=== PATIENT | male | born 1955 | race Two or more races ===

== ENCOUNTER 2017-03-17 15:23 | Emergency (ER) | payer BC ==
[~2017-03-17] VITALS: Ht 180.3 cm; Wt 90.7 kg
[2017-03-17 15:25] VITALS: BP 122/81
[2017-03-17] MEDS: HYDROmorphone 1mg/ml Carpuject IVP PRN ×2 (16:13→17:49)
--- NOTE | 2017-03-17 16:18 | Emergency Room Report ---
History of Present Illness General Chief Complaint: Upper Extremity Injury Source: Patient, EMS Present Illness HPI 61YOM BIBEMS with likely clavicle fx Patient fell "straight" down 6 steps, impacted upper right shoulder/chest area - did NOT tumble/roll No LOC, no neck pain [place] "pop" in clavicle area No previous injury No pain to upper arm, elbow, forearm, hand/wrist Was given morphine/zofran by EMS Allergies: Coded Allergies: No Known Allergies (Unverified , 03/17/17) Patient History Past Medical History: none Past Surgical History: none Pertinent Family History: none Social History: Denies: smoking, alcohol use, drug use Immunizations: UTD Reviewed Nursing Documentation: PMH: Agreed, PSxH: Agreed Nursing Documentation-PMH Past Medical History: No Stated History Review of Systems All Other Systems: negative except mentioned in HPI Physical Exam Vital Signs Date Time Temp Pulse Resp B/P (MAP) Pulse Ox O2 Delivery O2 Flow Rate FiO2 03/17/17 15:19 98.6 72 20 116/75 96 Room Air Sp02 EP Interpretation: reviewed, normal General Appearance: normal inspection, well appearing, no apparent distress, alert Head: atraumatic ENT: normal ENT inspection, hearing grossly normal, normal voice Neck: normal inspection, full range of motion, supple, no bony tend Respiratory: normal inspection, lungs clear, normal breath sounds, no respiratory distress, no retraction, no wheezing Cardiovascular #1: regular rate, rhythm, no edema Gastrointestinal: normal inspection, normal bowel sounds, non tender, soft, no guarding, no hernia Genitourinary: no CVA tenderness Musculoskeletal: normal inspection, back normal, normal range of motion, Gavi' s Sign negative, other - upper right chest: palpable deformity crackling of mid- shaft of clavicle. No ttp to right shoulder, upper arm, chest Neurologic: normal inspection, alert, responsive, speech normal Psychiatric: normal inspection, judgement/insight normal, mood/affect normal Skin: normal inspection, normal color, no rash Medical Decision Making Diagnostic Impression: Primary Impression: Closed right clavicular fracture Qualified Codes: S42.024A - Nondisplaced fracture of shaft of right clavicle, initial encounter for closed fracture Additional Impression: Fall (on) (from) other stairs and steps, initial encounter ER Course Comminuted fx of midshaft right clavicle, displaced by 2 bone widths Analgesia PO and IV provided Had phone conversation and Ortho Cx with Dr Renee - recommended sling and outpatient followup for repeat xray in 1 week. No acute surgical intervention recommended now. There is no open fx, there is no tenting of the skin Shoulder joint alignment otherwise intact Rx percocet Patient already made f/up appt for Ortho tomrorow DC home Chest X-Ray Diagnostic Results Chest X-Ray Diagnostic Results : Chest X-Ray Ordered: Yes # of Views/Limited/Complete: 1 View Indication: Chest Pain EP Interpretation: Yes Interpretation: no consolidation, no effusion, no pneumothorax, no acute cardiopulmonary disease, other - No rib fx Electronically Signed by: Dr Nida Huizar MD Other X-Ray Diagnostic Results Other X-Ray Diagnostic Results : X-Ray ordered: Right clavicle # of Views/Limited Vs Complete: 2 View Indication: Pain EP Interpretation: Yes Interpretation: other - +shaft fx with dislocation and soft tissue swelling Electronically Signed by: Dr Nida Huizar MD Last Vital Signs Date Time Temp Pulse Resp B/P (MAP) Pulse Ox O2 Delivery O2 Flow Rate FiO2 03/17/17 15:19 98.6 72 20 116/75 96 Room Air Status: improved Disposition: HOME, SELF-CARE Scripts Oxycodone/Acetaminophen 5-325* (PERCOCET 5-325 MG TABLET*) 1 Each Tablet 1 TAB ORAL Q8H Y for For Pain, #20 TAB Prov: NIDA HUIZAR M.D. 03/17/17 NIDA HUIZAR M.D. Mar 17, 2017 16:18
--- NOTE | 2017-03-17 16:49 | Diagnostic Imaging Report ---
Indication: PAIN, injury to the right clavicular area, status post fall Technique: 2 views right clavicle Comparison: None Findings: There is a comminuted fracture of the midshaft right clavicle, displaced by at least 2 bone widths. Impression: Positive for comminuted mid shaft clavicular fracture as described
[2017-03-17] MEDS ORDERED: PERCOCET 5-3251 EACH ORAL (17:32)
[2017-03-17] MEDS ORDERED: HYDROmorphone 1mg/ml Carpuject IVP ONE (17:45)
[2017-03-17 17:55] VITALS: BP 122/81
--- NOTE | 2017-03-18 12:36 | Diagnostic Imaging Report ---
Indication: Chest pain Comparison: None A single view chest radiograph was obtained. Findings: There is mild left basal atelectasis. The heart is normal in size. There is a fracture of the right clavicle, which appears acute. Bones are osteopenic. Impression: Mild left basal atelectasis Right acute clavicle fracture
== END 2017-03-17 20:13 | disposition home or self-care (01) ==
LOC: EDBD 15:23 → EMR 16:29 → CANBEDREQ 17:30 → EMR 20:13
DX: S42.021A Displaced fracture of shaft of right clavicle, initial encounter for closed fracture (principal); W10.9XXA Fall (on) (from) unspecified stairs and steps, initial encounter; Y92.019 Unspecified place in single-family (private) house as the place of occurrence of the external cause
CPT/HCPCS: 71010; 73000; 96374; 99283; J1170